=== PATIENT | female | born 1970 | race Caucasian/White ===

== ENCOUNTER 2019-03-10 08:22 | Observation (INO) | payer MEDICAID ==
[2019-03-10] MEDS: Aspirin 81 MG Tab.Chew PO ONE (08:48)
--- NOTE | 2019-03-10 09:35 | EDM.PDOC ---
ED HPI GENERAL MEDICAL PROBLEM - General Chief Complaint: Chest Pain Stated Complaint: UNKNOWN Time Seen by Provider: 03/10/19 08:30 Source of Information: Reports: Patient History Limitations: Reports: No Limitations - History of Present Illness INITIAL COMMENTS - FREE TEXT/NARRATIVE: This is a 48yo F here for chest pain that woke her up in the am around 1 am and did not resolve. She continues to have the chest pain 4/10 in the mid upper left sternal area. She denies prior chest pain or complaints. She denies any fever or chills, no shortness of breath. Onset: Sudden Duration: Hour(s):, Constant Location: Reports: Chest Mid Chest Pain Score (Numeric/FACES): 2 Headache Pain Score (Numeric/FACES): 2 - Related Data Allergies Allergy/AdvReac Type Severity Reaction Status Date / Time No Known Allergies Allergy Verified 03/10/19 08:45 Home Meds: Home Meds Cholecalciferol (Vitamin D3) [Vitamin D3] 1,000 unit PO DAILY 03/10/19 [History] FLUoxetine HCl [Fluoxetine HCl] 40 mg PO DAILY 03/10/19 [History] Gemfibrozil 600 mg PO DAILY 03/10/19 [History] Levothyroxine Sodium [Synthroid] 75 mcg PO ACBREAKFAST 03/10/19 [History] Losartan Potassium [Cozaar] 100 mg PO DAILY 03/10/19 [History] Magnesium Oxide [Magnesium] 400 mg PO DAILY 03/10/19 [History] Metoprolol Tartrate 50 mg PO DAILY 03/10/19 [History] Multivitamin [Multiple Vitamins] 1 each PO DAILY 03/10/19 [History] Omeprazole 40 mg PO ACBREAKFAST 03/10/19 [History] Omeprazole 40 mg PO BIDAC 03/10/19 [History] Topiramate 25 mg PO BID 03/10/19 [History] hydroCHLOROthiazide [Hydrochlorothiazide] 25 mg PO DAILY 03/10/19 [History] Past Medical History HEENT History: Reports: Impaired Vision Cardiovascular History: Reports: High Cholesterol, Hypertension Gastrointestinal History: Reports: GERD, Other (See Below) Other Gastrointestinal History: bowels not regular 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: Neurological History: Reports: Migraines Psychiatric History: Reports: Depression Endocrine/Metabolic History: Reports: Hypothyroidism, Obesity/BMI 30+ - Past Surgical History HEENT Surgical History: Reports: None Cardiovascular Surgical History: Reports: None GI Surgical History: Reports: Appendectomy, Colonoscopy, EGD Endocrine Surgical History: Reports: None Neurological Surgical History: Reports: Discectomy, Lumbar Spine Social & Family History - Tobacco Use Smoking Status *Q: Former Smoker Used Tobacco, but Quit: Yes Month/Year Tobacco Last Used: 2015 - Recreational Drug Use Recreational Drug Use: No ED ROS GENERAL - Review of Systems Review Of Systems: ROS reveals no pertinent complaints other than HPI. ED EXAM, GENERAL - Physical Exam Exam: See Below Exam Limited By: No Limitations General Appearance: Alert, WD/WN, No Apparent Distress Eye Exam: Bilateral Eye: EOMI, PERRL Ears: Normal External Exam Nose: Normal Inspection Throat/Mouth: Normal Inspection Head: Atraumatic, Normocephalic Neck: Normal Inspection Respiratory/Chest: No Respiratory Distress, Lungs Clear, Normal Breath Sounds Cardiovascular: Normal Peripheral Pulses, Regular Rate, Rhythm Peripheral Pulses: 2+: Dorsalis Pedis (L), Dorsalis Pedis (R) GI/Abdominal: Normal Bowel Sounds Extremities: Normal Inspection Neurological: Alert, Oriented, CN II-XII Intact Course - Vital Signs Last Recorded V/S: Last Vital Signs Temp 36.3 C 03/10/19 08:33 Pulse 66 03/10/19 12:23 Resp 18 03/10/19 12:23 BP 116/76 03/10/19 12:23 Pulse Ox 97 03/10/19 12:23 - Orders/Labs/Meds Labs: Laboratory Tests 03/10/19 03/10/19 03/10/19 Range/Units 08:40 08:40 08:40 WBC 5.2 D (4.0-11.0) K/uL RBC 4.33 (3.80-5.80) M/uL Hgb 13.7 (11.5-16.5) g/dL Hct 41.8 (37.0-47.0) % MCV 97 H (76-96) fL MCH 31.6 (27.0-32.0) pg MCHC 32.8 (31.0-35.0) g/dL RDW 13.0 (11.0-16.0) % Plt Count 270 (150-500) K/uL MPV 9.9 (6.0-10.0) fL Neut % (Auto) 66.0 (45.0-70.0) % Lymph % (Auto) 22.7 (20.0-40.0) % Moody % (Auto) 8.0 (3.0-10.0) % Eos % (Auto) 2.7 (1.0-5.0) % Baso % (Auto) 0.6 H (0.0-0.5) % Neut # (Auto) 3.40 (2.00-7.50) K/uL Lymph # (Auto) 1.17 L (1.50-4.00) K/uL Moody # (Auto) 0.41 (0.20-0.80) K/uL Eos # (Auto) 0.14 (0.04-0.40) K/uL Baso # (Auto) 0.03 (0.02-0.10) K/uL PT 9.4 (9.0-11.5) sec INR 1.0 (1.0-3.5) Sodium 140 (136-145) mmol/L Potassium 3.7 (3.5-5.1) mmol/L Chloride 105 (98-107) mmol/L Carbon Dioxide 25.4 (21.0-32.0) mmol/L Anion Gap 13.3 (5.0-15.0) mmol/L BUN 17 (8-26) mg/dL Creatinine 0.96 (0.55-1.02) mg/dL Est Cr Clr Drug Dosing TNP Estimated GFR (MDRD) > 60 (>60) MLS/MIN BUN/Creatinine Ratio 17.7 (6-25) Glucose 106 H (74-100) mg/dL Calcium 8.7 (8.5-10.1) mg/dL Total Bilirubin 0.3 (0.0-1.0) mg/dL AST 19 (15-37) U/L ALT 42 (12-78) U/L Alkaline Phosphatase 84 (46-116) U/L Troponin I < 0.017 (0.000-0.060) ng/mL B-Natriuretic Peptide 22 (0-125) pg/mL Total Protein 7.1 (6.4-8.2) g/dL Albumin 3.5 (3.4-5.0) g/dL Globulin 3.6 (2.2-4.2) g/dL Albumin/Globulin Ratio 1.0 (0.8-2.0) TSH, Ultra Sensitive 5.033 H (0.358-3.740) uIU/mL Meds: Medications Discontinued Medications Generic Name Dose Route Start Last Admin Trade Name Raul PRN Reason Stop Dose Admin Aspirin 324 mg 03/10/19 08:45 03/10/19 08:48 Aspirin PO 03/10/19 08:46 324 mg ONETIME ONE Administration Ketorolac Tromethamine 30 mg 03/10/19 09:34 03/10/19 09:50 Toradol IVPUSH 03/10/19 09:35 30 mg ONETIME ONE Administration Ketorolac Tromethamine Confirm 03/10/19 09:55 03/10/19 09:53 Toradol Administered 03/10/19 09:56 Not Given Dose 30 mg .ROUTE .STK-MED ONE Departure - Departure Time of Disposition: 09:00 Disposition: Refer to Observation Condition: Undetermined Clinical Impression: Chest pain Qualifiers: Chest pain type: unspecified Qualified Code(s): R07.9 - Chest pain, unspecified - Problem List & Annotations (1) Chest pain SNOMED Code(s): 81258709 Code(s): R07.9 - CHEST PAIN, UNSPECIFIED Status: Acute Qualifiers: Chest pain type: unspecified Qualified Code(s): R07.9 - Chest pain, unspecified - Problem List Review Problem List Initiated/Reviewed/Updated: Yes - Assessment/Plan Plan: Patient placed in observation for management of chest pain and rule out ACS. We will repeat troponins in 3 hours. Patient's chest pain has improved with aspirin given.
[2019-03-10] MEDS: Ketorolac 30 MG/ML SDV IVPUSH ONE (09:50)
[2019-03-10] MEDS: Ketorolac 30 MG/ML SDV ONE (09:53)
--- NOTE | 2019-03-10 18:13 | CR ---
CLINICAL DATA: Chest pain. AP PORTABLE CHEST, 10 MARCH 2019: Comparison made to a prior exam dated 03 May 2015. The patient has taken a poor inspiration. The heart size is normal. The lungs are clear. No pneumothorax. No pleural effusions. No evidence of acute intrathoracic disease. Job: [id number] MTDD
--- NOTE | 2019-03-11 16:00 | PCM.DCSUM1 ---
Discharge Summary - Discharge Data Discharge Date: 03/10/19 Discharge Disposition: Home, Self-Care 01 Condition: Good - Discharge Diagnosis/Problem(s) (1) Chest pain SNOMED Code(s): 58580806 ICD Code: R07.9 - CHEST PAIN, UNSPECIFIED Status: Resolved Qualifiers: Chest pain type: unspecified Qualified Code(s): R07.9 - Chest pain, unspecified - Patient Instructions Diet: Usual Diet as Tolerated Activity: As Tolerated Driving: May Drive Today Notify Provider of: Fever, Increased Pain, Swelling and Redness, Drainage, Nausea and/or Vomiting - Discharge Plan Home Medications: Home Meds Cholecalciferol (Vitamin D3) [Vitamin D3] 1,000 unit PO DAILY 03/10/19 [History] FLUoxetine HCl [Fluoxetine HCl] 40 mg PO DAILY 03/10/19 [History] Gemfibrozil 600 mg PO DAILY 03/10/19 [History] Levothyroxine Sodium [Synthroid] 75 mcg PO ACBREAKFAST 03/10/19 [History] Losartan Potassium [Cozaar] 100 mg PO DAILY 03/10/19 [History] Magnesium Oxide [Magnesium] 400 mg PO DAILY 03/10/19 [History] Metoprolol Tartrate 50 mg PO DAILY 03/10/19 [History] Multivitamin [Multiple Vitamins] 1 each PO DAILY 03/10/19 [History] Omeprazole 40 mg PO ACBREAKFAST 03/10/19 [History] Omeprazole 40 mg PO BIDAC 03/10/19 [History] Topiramate 25 mg PO BID 03/10/19 [History] hydroCHLOROthiazide [Hydrochlorothiazide] 25 mg PO DAILY 03/10/19 [History] Patient Handouts: Nonspecific Chest Pain Forms: ED Department Discharge Referrals: PCP,None [Primary Care Provider] - - Discharge Summary/Plan Comment DC Time >30 min.: No Discharge Summary/Plan Comment: Patient troponins were negative. Counseled on discharge and f/u instructions. Discussed close monitoring and f/u in ER or clinic if symptoms return for further workup. - Patient Data Vitals - Most Recent: Last Vital Signs Temp 36.3 C 03/10/19 08:33 Pulse 66 03/10/19 12:23 Resp 18 03/10/19 12:23 BP 116/76 03/10/19 12:23 Pulse Ox 97 03/10/19 12:23 Weight - Most Recent: 105.687 kg Med Orders - Current: Current Medications Discontinued Medications Aspirin (Aspirin) 324 mg PO ONETIME ONE Stop: 03/10/19 08:46 Last Admin: 03/10/19 08:48 Dose: 324 mg Ketorolac Tromethamine (Toradol) 30 mg IVPUSH ONETIME ONE Stop: 03/10/19 09:35 Last Admin: 03/10/19 09:50 Dose: 30 mg Ketorolac Tromethamine (Toradol) Confirm Administered Dose 30 mg .ROUTE .STK- MED ONE Stop: 03/10/19 09:56 Last Admin: 03/10/19 09:53 Dose: Not Given
== END 2019-03-10 12:34 | disposition home or self-care (01) ==
LOC: LB.ED 08:26 → LB.MS 09:31
PROVIDERS: ADMIT Family Medicine; ATTEND Family Medicine
DX: R07.2 Precordial pain (principal); I10 Essential (primary) hypertension; E78.00 Pure hypercholesterolemia, unspecified; E03.9 Hypothyroidism, unspecified; F32.9 Major depressive disorder, single episode, unspecified; Z87.891 Personal history of nicotine dependence; Z79.899 Other long term (current) drug therapy
CPT/HCPCS: 36415; 71045; 80053; 83880; 84443; 84484; 85025; 85610; 93005; 96374; 99285; A9270; J1885